=== PATIENT | male | born 1990 | race Caucasian/White ===

== ENCOUNTER 2018-07-26 11:12 | Emergency (ER) | payer OTHER ==
[~2018-07-26] VITALS: Ht 185.4 cm; Wt 72.6 kg
[2018-07-26 11:30] VITALS: BP 151/82
== END 2018-07-26 11:57 | disposition home or self-care (01) ==
LOC: EDBD 11:12 → ER 11:12
DX: F20.9 Schizophrenia, unspecified (principal); Z87.891 Personal history of nicotine dependence